=== PATIENT | female | born 1960 | race Caucasian/White ===

== ENCOUNTER → 2016-06-09 | Outpatient (CLI) | payer OTHER ==
[~2016-06-09] VITALS: Ht 167.6 cm; Wt 106.1 kg
[~2016-06-09] MED LIST: ABILIFY 2 MG2 MG PO; ACETAMINOPHEN325 M1 PO; ADVIL MIGRAINE; BENADRYL ALLERG25 MG PO; BENADRYL25 MG PO; BRINTELLIX20 MG PO; BUTALB-ACETAMI1 EACH PO; BUTALB-APAP-CA1 EACH PO; CARAFATE 1 GM TA1 G1 PO; CARAFATE 11 GM/10 M1 PO; CELEXA 20 MG TA20 MG PO; CELEXA40 MG PO; CLIMARA 0.070.075 MG TD; CYCLOBENZAPRINE10 MG PO; CYMBALTA30 MG PO; CYMBALTA60 MG PO; DEXILANT60 MG; ENDOCET 5-3251 EACH PO; ESTRACE1 MG PO; EXCEDRIN SINUS1 EAC2; FIORICET 50-321 EACH PO; HYDROCODON-ACE1 EAC7 PO; HYDROCODONE-AP1 EAC6 PO; IBUPROFEN 600600 M1 PO; IMITREX 25 MG T25 M1 PO; IMITREX 50 MG T50 M1 PO; LEVAQUIN 500 M500 M2 PO; LEVOTHYROXIN0.112 M1 PO; LEVOTHYROXIN0.125 M1 PO; LEVOTHYROXIN0.137 M1 PO; LEXAPRO20 MG PO; LORTAB 5 MG/5001 TA1; LORTAB 5 MG/5001 TA1 PO; LORTAB 5 MG/5001 TAB PO; MECLIZINE HCL25 M1 PO; MEDROL DOSPAK21 TA1 PO; METHYLPHENIDATE20 M2 PO; METHYLPHENIDATE20 M5 PO; METOCLOPRAM5 MG/5 ML; MOBIC15 MG PO; NAPROSYN500 MG PO; NEXIUM40 MG PO; NORCO 10-325 T1 EACH PO; NORCO 5-325 TA1 EACH; NORCO 5-325 TA1 EACH PO; ONDANSETRON HCL4 M2 PO; ONDANSETRON HCL8 M2 PO; ONDANSETRON HCL8 MG PO; ONDANSETRON ODT4 MG PO; ONDANSETRON ODT8 MG PO; OXYCODON-ACETA1 EAC1 PO; OXYCONTIN10 M1 PO; PAXIL10 MG; PERCOCET 5-3251 EACH; PERCOCET 5-3251 EACH PO; PERCODAN TABLE1 EACH; PHENERGAN 25 MG25 M1 PO; PHENERGAN50 MG RC; PREDNISONE 20 M20 MG PO; PROPRANOLOL 1010 M1 PO; PROPRANOLOL 20M20 M1 PO; PROTONIX40 M2 PO; REGLAN 10 MG TA10 M1 PO; REGLAN 10 MG TA10 MG; REGLAN 10 MG TA10 MG PO; REGLAN 5 MG TAB5 M1 PO; RELAFEN500 MG PO; SINGULAIR 10 MG10 M1 PO; SYNTHROID100 MCG PO; SYNTHROID112 MCG PO; TOPAMAX 25 MG T25 M1 PO; TRANSDERM-SCO1 PATC1 TD; TRANSDERM-SCO1 PATC1 TRANSDERM; TRANSDERM-SCO1 PATCH TD; VALIUM2 MG PO; VALIUM5 MG PO; VITAMIN D 5050000 I1 PO; XANAX 0.25 MG0.25 MG PO; XANAX 0.5 MG0.5 M1 PO; ZANTAC 150MG T150 MG PO; ZOFRAN ODT4 MG PO; ZOFRAN4 MG PO; ZOFRAN8 MG PO
--- NOTE | ~2016-06-09 | HPC ---
[facility] [place] [address] PAIN MANAGEMENT CONSULTATION Name: PERLA FLORES Room #: REG LYNN Meléndez.#: [id number] Admission: 06/09/16 Attend Phys: Taiwo Reyes MD Discharge: Date of : 64 Report #: [id number] THIS REPORT FOR: //name// CC: Ace Reyes DATE OF SERVICE: 06/09/2016 FOLLOWUP COMPLAINT: Still having some problems with crystals in my ear and balance. FOLLOWUP HISTORY: The patient is a 55-year-old female who has been followed in the pain clinic because of chronic headaches and some myofascial pain. The patient returns today indicating that use of propranolol has increased her headache relief. She is having less headaches and she has less intense. She has had no complications from the use of the propranolol. She has not been to the Emergency Room because of the headaches. She would like to have her medications renewed. She states that she has taken her other opioid medications as prescribed. They too have been quite efficacious and allow her to stay out of the Emergency Room. PHYSICAL EXAMINATION: Blood pressure 141/103, pulse 125, respiratory rate 18, room air saturation 97%. The patient feels that she is doing reasonably well. She is not having a headache today. She rates her pain as a 3/10. IMPRESSION: 1. History of migraine headaches, improved since starting propranolol 20 mg daily. The patient continues with Topamax. 2. Hypertension. The patient feels a little nervous today. She has had some gastrointestinal discomfort as well. She is taking her allergy medication because of the changes in the weather. 3. Middle ear balance problem. 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 She is going to the [facility] for help with this problem. 4. Hypothyroidism. 5. Chronic sinus problems. 6. History of bleeding gastric ulcer. RECOMMENDATION: We discussed treatment options with the patient. Risks and benefits of opioid medications were discussed. Possible complication which includes development of tolerance was discussed. The patient will continue with her current medical regimen. She will call us if she has any problem with her [facility] [address] [place] [address] PAIN MANAGEMENT CONSULTATION Name: PERLA FLORES [id number] Admission: 06/09/16 Attend Phys: Taiwo Reyes MD Discharge: Date of : 64 Report #: [id number] medicines. We would like to thank you for letting us participate in her care. We hope she continues to improve. By: [id number] Taiwo Reyes MD /nt
[2016-06-09 10:19] VITALS: BP 156/108
[2016-06-09 10:54] VITALS: BP 141/103
== END ==
LOC: PAIN 07:21
DX: G89.29 Other chronic pain (principal); E03.9 Hypothyroidism, unspecified; H93.90 Unspecified disorder of ear, unspecified ear; I10 Essential (primary) hypertension; Z87.891 Personal history of nicotine dependence

== ENCOUNTER → 2016-08-23 | Outpatient (CLI) | payer OTHER ==
[~2016-08-23] VITALS: Ht 167.6 cm; Wt 106.8 kg
[2016-08-23 10:16] VITALS: BP 139/91
== END | disposition home or self-care (01) ==
LOC: PAIN 07:23
DX: G43.909 Migraine, unspecified, not intractable, without status migrainosus (principal); I10 Essential (primary) hypertension; E03.9 Hypothyroidism, unspecified; K25.4 Chronic or unspecified gastric ulcer with hemorrhage; Z87.891 Personal history of nicotine dependence

== ENCOUNTER → 2016-11-01 | Outpatient (CLI) | payer OTHER ==
[~2016-11-01] VITALS: Ht 167.6 cm; Wt 106.9 kg
--- NOTE | ~2016-11-01 | HPC ---
[facility] [place] [address] PAIN MANAGEMENT CONSULTATION Name: PERLA FLORES Room #: REG LYNN Meléndez.#: [id number] Admission: 11/01/16 Attend Phys: Taiwo Reyes MD Discharge: Date of : 64 Report #: [id number] THIS REPORT FOR: //name// CC: Ace Oro DATE OF SERVICE: 11/08/2016 FOLLOWUP COMPLAINT: "Here for medication renewal. Things are going pretty good today." FOLLOWUP HISTORY: The patient is a 56-year-old female who has been seen in the Pain Clinic in the past because of history of migraine headaches. She finds that things are going reasonably well with her headaches. She rates her pain as a 0 today. She does note some worsening of her pain with changes in the weather. She also notes that her pain is helped when she lies down, places heat or cold on the affected areas. She would like to have her medications renewed. PHYSICAL EXAMINATION: Blood pressure is 126/83, pulse 100, respiratory rate 20, room air saturation 97%. Height 5 feet 6 inches, weight 235 pounds, BMI is 38. IMPRESSION: 1. History of spinal migraine headaches, stable with propranolol 20 mg daily and Topamax. 2. Hypertension. 3. Inner ear balance problems. Has history of calcium oxalate crystals in the middle ear. 4. Hypothyroidism. 5. Chronic sinus problems. 6. History of bleeding gastric ulcer. RECOMMENDATIONS: We will continue with her current medication regimen. She will call us if she has any problems with her medications. A script for Percocet 5/325 one p.o. q. 4 hours p.r.n., hydrocodone 5/325 one p.o. q. 4-6h. p.r.n., Topamax 25 mg 1 p.o. b.i.d., propranolol 20 mg 1 p.o. daily. We would like to thank you for letting us participate in her care. We hope she continues to improve. By: [id number] Taiwo Reyes MD /ADY
[2016-11-01 10:30] VITALS: BP 126/83
== END | disposition home or self-care (01) ==
LOC: PAIN 09:53
DX: G43.909 Migraine, unspecified, not intractable, without status migrainosus (principal); I10 Essential (primary) hypertension; E03.9 Hypothyroidism, unspecified; Z68.38 Body mass index [BMI] 38.0-38.9, adult; Z87.891 Personal history of nicotine dependence